=== PATIENT | male | born 1955 | race Caucasian/White ===

== ENCOUNTER 2021-12-24 12:26 | Inpatient (IN) | payer OTHER, MEDICARE ==
[~2021-12-24] VITALS: Ht 177.8 cm; Wt 91.3 kg
--- NOTE | 2021-12-24 13:00 | NUR ---
PT AMBULATED INTO MED/SURG, DIRECT ADMIT FROM DR. WONG'S OFFICE. ORDERS ENTERD BY COLOR MAKER DYER, CAMACHO. PT CHANGES INTO GOWN INDEPENDANTLY, STEADY ON FEET, NO ASSISTANCE NEEDED. IV STARTED TO LEFT FORARM PER PROTOCOL, BRISK BLOOD RETURN NOTED. LABS DRAWN WITH IV START AND SENT LAB. IV FLUIDS STARTED PER MD ORDER. PT REPORTS HE IS UNABLE TO VOID AT THIS TIME BECAUSE "I JUST WENT ON THE WAY IN." URINAL PROVIDED FOR WHEN NEEDED. VITAL SIGNS STABLE. PT REPORTS 2/10 PAIN "RIGHT BETWEEN THE RECTUM AND THE SCROTUM." PT DENIES NEED FOR PAIN MEDICATION AT THIS TIME. PT ALERT AND ORIENTD TO ALL. PT DENEIS NUBNESS OR TINGLING TO EXTREMITIES. CMS INTACT. HEART TONES REGULAR, LUNG SOUNDS CLEAR. BOWEL TONES ACTIVE. ABDOMEN SOFT AND NON TENDER. PT DENIES PAIN WITH URINATION. HARD REDDENED AREA NOTED BETWEEN RECTUM AND SCROTUM. PT DENEIS ANY SCROTAL SWELLING, REDNESS OR RASHES. BROWN ROUGH SPOTS NOTED OVER LEGS, ARMS AND ABDOMEN. PT REPORTS SPOTS ARE "FROM THE SUN." SMALL 3CM SOFT LUMP IN RIGHT UPPER LEG. PT REPORTS "ITS A FATTY LUMP FROM WHEN I WAS YOUNGER." PT UPDATED ON PLAN OF CARE AND OREINTED TO ROOM. PT DENIES ADDITIONAL NEEDS AT THIS TIME. CALL LIGHT WIHTIN REACH. BED RAILS UP.
--- NOTE | 2021-12-24 13:04 | NUR ---
RT COLLECTED RAPID COVID 19 SWAB WITH NO COMPLICATIONS AT THIS TIME.
[2021-12-24] MEDS ORDERED: TYLENOL325 MG PO (13:27)
--- NOTE | 2021-12-24 13:55 | NUR ---
HOURLY ROUNDING: PT RESTING IN BED ON BACK, REPORTS "LYING THIS WAY HELPS THE PAIN." PT REPORTS 2/10 PAIN AND CONTINUES TO DENY NEED FOR PAIN MEDICATION. PT UPDATED ON PLAN OF CARE. NO ADDITIONAL REQEUSTS OR COMPLAINTS. CALL LIGHT WIHTIN REACH. BED RAILS UP.
--- NOTE | 2021-12-24 14:48 | NUR ---
PT RESTING AWAKE IN BED. DENIES NEEDS AT THIS TIME. CALL LIGHT IN REACH.
--- NOTE | 2021-12-24 15:15 | NUR ---
HOURLY ROUNDING: THIS RN TO ROOM TO CHECK ON PT. PT RESTING ON LEFT SIDE, VISITING WITH . PT REPORTS 4/10 PAIN IN PERINEAL AREA. PT REQUESTS PAIN MEDICAITON, SEE MAR FOR MEDICATION GIVEN. PT DENIES ADDITIONAL REQUESTS OR COMPLAINTS. VERBALIZES UNDERSTANDING OF PLAN OF CARE. CALL LIGHT WITHIN REACH. BED RAILS UP. FAMILY AT BEDSIDE.
--- NOTE | 2021-12-24 16:29 | NUR ---
THIS RN TO ROOM TO CHECK ON PT. PT RESTING ON LEFT SIDE, REPORTS 2/10 PAIN IN PERINEAL AREA THAT IS TOLERABLE. PT DENIES NEED FOR ADDITIONAL PAIN MEDICATION. PRE PROCEEDURE CHECK LIST COMPLETED. OR PAPERWORK PRINTED. LR ON STRAIGHT TUBING HANGING AT BEDSIDE PER OR ORDERS. NO ADDITIONAL REQUESTS OR COMPLAINTS. CALL LIGHT WITHIN REACH. BED RAILS UP.
[2021-12-24] MEDS ORDERED: BACTRIM DS TAB1 EACH PO (16:36)
--- NOTE | 2021-12-24 17:05 | NUR ---
MED REC COMPLETE
--- NOTE | 2021-12-24 17:12 | NUR ---
PT ARRIVED THIS SHIFT FOR PERINEAL ABCESS. PT INDEPENDANT IN ROOM, STEADY ON FEET AND OREINTED TO SURROUNDINGS. PT NPO SO FAR THIS SHIFT, ANTICIPATING PROCEEDURE. PT ORIENTED TO ALL THROUGHOUT SHIFT. PT REPORTS 2-4/10 PAIN IN PERINEAL AREA THIS SHIFT, SEE MAR FOR MEDICAITON GIVEN. IV FLUIDS BOLUS GIVEN. MONITORING LABS. UA COMPLETE. PT VOIDING QUANTITY SUFFICENT. PT USES CALL LIGHT AND MAKES NEEDS KNOWN.
--- NOTE | 2021-12-24 17:22 | NUR ---
PAIN MEDICAITON DUE/GIVEN. PT REPORTS 3/10 PAIN IN LEFT ABDOMEN/FLANK. DINNER DELIVERED TO PT. PT REJECT DINNER. ENSURE OFFERED. PT AGREES TO TRY ENSURE. STRAWBERRY ENSURE MILKSHAKE PROVIDED. PT DENIES ADDITIONAL REQUESTS OR COMPLAINTS. CALL LIGHT WITHIN REACH. CHAIR ALARM ON.
--- NOTE | 2021-12-24 17:50 | NUR ---
DR. WONG CALLED AND UPDATED ON PT STATUS. PT UPDATED ON PLAN OF CARE. PT STATES PAIN IS "BETTER NOW." PT DENIES NEED FOR ADDITIONAL PAIN CONTROL INTERVENTIONS. CHG WIPE DOWN PER PRE-OP PROTOCOL PERFORMED. PTS AT BEDSIDE. PT AND STATE THEIR QUESTIONS HAVE BEEN ANSWERED. NO ADDITIONAL REQUESTS OR COMPLAINTS. CALL LIGHT WITHIN REACH. BED RAILS UP.
--- NOTE | 2021-12-24 18:41 | NUR ---
THIS RN TO ROOM TO CHECK ON PT. PT RESTING IN BED VISITING WITH HIS . PT REPORTS 2/10 "TOLERABLE" PAIN. PT DENIES ADDITIONAL REQUESTS OR COMPLAINTS AT THIS TIME. CALL KACI RENTERIA. BED RAILS UP.
--- NOTE | 2021-12-24 19:30 | NUR ---
IN TO GET VITALS, I&Os DONE
--- NOTE | 2021-12-24 19:35 | NUR ---
PT READY FOR SURGERY, DENIES C/O PAIN AT THIST GRIS. WAITING TO GO TO SURGERY. IVF INFUSING. IN ROOM
--- NOTE | 2021-12-24 20:25 | NUR ---
PT DOWN TO OR VIA STRETCHER ACOMPANIED BY OR STAFF AND ,
--- NOTE | 2021-12-24 21:08 | NUR ---
12/24/212107 Camryn Reyes 2103- PT ARRIVES TO PACU AWAKE AND TALKING. PT REPORTS NO PAIN OR NAUSEA. RESP EVEN AND UNLABORED. OXYGEN SAT MID TO HIGH 90'S ON RA. PT'S HEAD OF BED ELEVATED. PT TOLERATED WELL. 2106- DR. WONG AT THE BEDSIDE TO TALK WITH THE PT.
--- NOTE | 2021-12-24 21:25 | NUR ---
pt RETURNED FROM PACU, AWAKE AND RESTING IN BED. VSS, CPOX IN PLACE. RR EVEN AND UNLABORED, NO DISTRESS NOTED. pt REMAINS ON RA. BEDSIDE REPORT RECEIVVED FROM SURVEY AND MAPPING TECHNICIAN LISHA. pt REPORTS FEELING "HUNGRY", FRESH WATER AND JELLO PROVIDED. IV FLUIDS RESUMED PER MD ORDERS, IV SITE WNL AND FLUSHES EASILY. NO ADDITIONAL NEEDS, WILL CONTINUE TO MONITOR. CALL LIGHT IN REACHA DN ALSO REMAINS IN ROOM.
--- NOTE | 2021-12-24 21:25 | NUR ---
PT BACK FROM OR, ALERT AND ORIENTED, IVF INFUSING, CPOX AT BEDSIDE. NO C/O PAIN OR N/V, AT BEDSIDE
--- NOTE | 2021-12-24 21:55 | NUR ---
CALL RECEIVED FROM CLARI FROM LAB, GRAM STAIN POSITIVE FOR GRAM NEGATIVE DIPLOCOCCI-DR WONG MADE AWARE AT 2220. NO NEW ORDERS RECEIVED AT THIS TIME. PRIMARY RN ERNIE ALSO UPDATED.
--- NOTE | 2021-12-24 22:46 | NUR ---
awakes easily, on room air, cpox post op in place, clear lungs abd distended, soft, jian, ivf infusing lar. coop with asessment. c/o being hungry, train operations supervisor notified. irritable but redirectable .
--- NOTE | 2021-12-25 00:55 | NUR ---
resting, eyes closed, IVF infusing, dressing to buttocks area changed, packing in place, jer drain, abd removed and peripad applied. cooperative.
--- NOTE | 2021-12-25 01:38 | NUR ---
pt awake, c/o rectal/groin area pain, dressing in place rectal area. medicated with Toradol 30mg IV. IVF infusing w/o problems
--- NOTE | 2021-12-25 04:40 | NUR ---
Pt resting, turns self in bed, no further c/o pain. IVF infusing w/o problems. call light and fluids at hands rech, rooming in
--- NOTE | 2021-12-25 07:30 | NUR ---
REPORT RECEIVED FROM MARU KLEIN. PT RESTINGIN BED ON BACK. PT REPORTS 2/10 PAIN THAT IS WELL CONTROLLED AT THIS TIME. PT DENIES NEED FOR ADDITIONAL PAIN MEDICATION. DR. WONG TO BEDSIDE TO REVIEW PLAN OF CARE AND PLAN FOR DISCHRAGE WITH PT. PT VERBALIZES UNDERSTANDING AND STATES HIS QUESITONS HAVE BEEN ANSWERED. BREAKFAST ORDER PLACED. ORDERS GIVE TO SALINE LOCK IV AT THIS TIME. IV FLUSHED AND SALINE LOCKED, ALCOHOL CAP APPLIED. PT DENIES ADDITIONAL REQUESTS OR COMPLAINTS. CALL LIGHT WITHIN REACH. BED RAILS UP. PTS AT BEDSIDE.
[2021-12-25] MEDS ORDERED: OXYCODON-ACETA1 EAC2 PO (07:37)
[2021-12-25] MEDS ORDERED: METRONIDAZOLE250 MG PO (07:37)
[2021-12-25] MEDS ORDERED: CIPROFLOXACIN500 MG PO (07:37)
[2021-12-25] MEDS ORDERED: MOTRIN IB200 MG PO (07:38)
[2021-12-25] MEDS ORDERED: TYLENOL EXTRA500 MG PO (07:38)
--- NOTE | 2021-12-25 08:13 | NUR ---
ABX DUE. GIVEN ORDERED. PT CONTINUES RESTING IN BED, AWAITING BREAKFAST. PT UPDATED ON PLAN FOR DISCHARGE. NO ADDITONAL NEEDS CALL LIGHT WITHIN REACH. BED RAILS UP.
--- NOTE | 2021-12-25 09:02 | NUR ---
MORNING ASSESSMENT DUE. PT FINISHED WITH BREAKFAST. PT REPORTS 0/10 PAIN AT THIS TIME. PT DENIES NAUSEA. IV DC'D PER PROTOCOL. GAUZE AND COBAN APPLIED. PT DECLIENS A SHOWER AT THIS TIME. HEART TONES REGULAR, LUNG SOUNDS CLEAR. PT STEADY ON FEET WITH STAND BY ASSIST, PT INDEPENDNANT IN ROOM. PT UP TO RESTROOM. EDUCATION DONE REGARDING HOW TO USE A SITZ BATH. PT DEMONSTRATES UNDERSTANDING, FILLING AND OPERATING SITZ BATH. SITZ BATH PERFORMED WITH 2000ML WARM WATER. PT TOELARTES WELL. PT DENIES INCREASED PAIN WITH SITZ BATH. WOUND REMAINS WNL, PINROSE DRAIN IN PLACED WITH MINMAL RED DRAINAGE NOTED ON KAVEH PAD. NEW PAD PROVIDED. NEW MESH UNDERWARE PROVIDED, PT REQUESTS TO WEAR DEPENDS INSTEAD, PROVIDED. VITAL SIGNS STABLE. NO ADDITONAL NEEDS AT THIS TIME. CALL LIGHT WITHIN REACH. BED RAILS UP.
--- NOTE | 2021-12-25 09:41 | NUR ---
DR WONG CALLED TO CONFIRM DISCHAGE ABX ORDERS. DR. WONG STATES TO HAVE PT STOP TAKING BACTRUM AND CONTINUE CIPRO AND METRONIDAZOLE. PHARMCISTDAMIAN, CALLED AND STATES HE WILL EDIT DISCHAGE MEDICATION ORDERS.
--- NOTE | 2021-12-25 10:10 | NUR ---
PT READY FOR DISCHARGE. PHARMACIST TO BEDSIDE TO REVIEW MEDICATIONS WITH PT. PT VERBALIZES UNDERSTANDING OF MEDICATIONS AND STATES HIS QUESTIONS HAVE BEEN ANSWERED. DISCHARGE INSTRUCTIONS REVIEWED WITH PT AND PTS . PT AND VEBALIZE UNDERSTANDING OF INSTRUCTIONS, MEDICATIONS, FOLLOW UP, AND WOUND CARE AT HOME. PT AMBULATED FROM MED/SURG WITH ALL BELONGINGS. NO ADDITIONAL REQUESTS OR CONCENS.
--- NOTE | 2021-12-26 11:07 | HP ---
[facility] [address], [place] [address] Signed ADMISSION DATE: 12/24/2021 REASON FOR ADMISSION: Perineal abscess. HISTORY OF PRESENT ILLNESS: This 66-year-old white man lives in [place], [place]. He is a patient of Malu Gonzales as well as Dr. Mason Barrera. One week ago, he began having pain after fishing and in left anterior perineal area. He noted a "thumbnail" sized small mass. The following day, it increased in size and in pain. He had scheduled a visit in [place] for family practitioner there on Tuesday. The appointment was then changed to Tuesday. It was then changed to Tuesday as the provider was busy and then ultimately changed to see Malu Gonzales today on in [place]. Examination showed tenderness in the perineum in the anterior aspect of the midline and to the left and to the right. He has had no fever or chills and there has been no drainage there. He denies any prior history of perirectal abscess. 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 The patient has had hip replacement in 2016. He takes no medications on a routine basis. He does smoke cigars 1-2 times a day and drinks alcohol (beer). SOCIAL HISTORY: He lives in [place]. He is . His , Susi, is a nurse. 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 REVIEW OF SYSTEMS: He denies any shortness of breath or chest pain. He does have a fair amount of thirstiness. He has had a fair amount of water ingested on his way over from the [place] area for his visit in the office today. He denies any blood per rectum or hematemesis. He has no chest pain. The patient has been vaccinated for COVID and has not knowingly septic COVID disease. PHYSICAL EXAMINATION: GENERAL: Well-developed, well-nourished and well tanned white man who does not look toxic. Electronically Signed By: GONZÁLEZ WONG MD 12/26/21 1107 PATIENT NAME: MISHA HAYES HISTORY AND PHYSICAL DATE OF : 53 REPORT #: [id number] PHYSICIAN: GONZÁLEZ WONG MD PCP: MASON BARRERA MD REPORT IS CONFIDENTIAL AND NOT TO BE RELEASED WITHOUT AUTHORIZATION [facility] [address] [place], [place] [address] Signed VITAL SIGNS: His temperature is 97.3, pulse is 100, weight is 200 pounds. NECK: Shows no thyromegaly or cervical adenopathy. CHEST: Clear. HEART: Regular. His position of comfort is supine with legs flexed. Examination on the table shows tenderness and firmness in the region of the perianal area anteriorly and dominantly to the left foot to small extent to the right (he has noted no urinary frequency or fecal tenesmus and urinary flow was good). EXTREMITIES: Show a 5 cm lipoma of the right anterior thigh. He has no peripheral edema. No petechiae. ASSESSMENT: He may well have a perirectal abscess manifesting dominantly to the left side with extension to the right side at this point. If the anterior position gave some suggestion of possible prostatic involvement or possibility, however, he has no urinary symptoms whatsoever. Most likely this represents a perirectal abscess with development of extension to the contralateral side suggestive of horseshoe abscess. The patient has had a fair amount of liquids despite him being clinically dehydrated. I have recommended he be admitted directly to the hospital with initiation of IV fluids, assessment of COVID status, lab studies, IV antibiotics, and parenteral pain medication anticipating incision and drainage this evening. The risk of bleeding, infection, failure to cure the problem, the need for other indicated procedures was reviewed with him in detail. He understands and we will proceed as we have described. MD NISSA Limon/SKIP /[id number] cc: VIVEK Jones MD Electronically Signed By: GONZÁLEZ WONG MD 12/26/21 1107 PATIENT NAME: MISHA HAYES HISTORY AND PHYSICAL DATE OF : 53 REPORT #: [id number] PHYSICIAN: GONZÁLEZ WONG MD PCP: MASON BARRERA MD REPORT IS CONFIDENTIAL AND NOT TO BE RELEASED WITHOUT AUTHORIZATION [address] [address] Signed Copies: MASON BARRERA MD ~ Electronically Signed By: GONZÁLEZ WONG MD 12/26/21 1107 PATIENT NAME: MISHA HAYES JOS HISTORY AND PHYSICAL DATE OF : 53 REPORT #: [id number] PHYSICIAN: GONZÁLEZ WONG MD PCP: MASON BARRERA MD REPORT IS CONFIDENTIAL AND NOT TO BE RELEASED WITHOUT AUTHORIZATION
--- NOTE | 2021-12-26 11:07 | OR ---
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 PROCEDURES: 1. Exam under anesthesia. 2. Drainage of complex perirectal horseshoe abscess. 3. Placement of yellow vessel loop seton drain. ANESTHESIA: Saddle block, Everardo Rebolledo, MUSIC LEADER and IV sedation with local 10 mL of 0.25% Marcaine with epinephrine. INDICATION: This 66-year-old white man has had nearly a week of increasing perianal pain anteriorly located. He was seen by David Elmore confirming high probability of perirectal abscess. I saw him today on a walk-in basis in the office where he was noted to have induration and tenderness in the right anterior aspect as well as the left side. He was admitted, given fluid resuscitation, IV antibiotic cefoxitin and now to undergo exam under anesthesia with incision and drainage of probable horseshoe abscess. The risks of bleeding, infection, recurrence, need for other indicated procedures and of course, fistula formation (10% risk) were reviewed in detail. He understands and wished to proceed. FINDINGS: A radial incision in the anterior aspect on the right side allowed for entry to a perirectal abscess that extended on the perianal and perirectal spaces and anteriorly toward the base of the hemiscrotum. Thick purulent material was noted. Gram stain and cultures were obtained. Additionally, a counter incision was made to the left of the midline anteriorly, which also had purulent material in connection between the two sites as well established. Complete relief of the abscess cavity was undertaken. A yellow vessel loop was passed between the two incision sites and secured and copious irrigation of both sites undertaken allowing for clearance of the abscess cavity. Electronically Signed By: GONZÁLEZ WONG MD 12/26/21 1107 PATIENT NAME: MISHA HAYES OPERATIVE REPORT DATE OF : 53 REPORT #: [id number] PHYSICIAN: GONZÁLEZ WONG MD PCP: MASON REYNOSO MD REPORT IS CONFIDENTIAL AND NOT TO BE RELEASED WITHOUT AUTHORIZATION [facility] [address] [place], [place] [address] Signed DESCRIPTION OF PROCEDURE: The patient was brought to the operating room, given intravenous sedation. He had undergone a saddle block anesthetic prior to entry to the operating room. He is placed in a prone alejandra-knife position and the perineum prepared with a Betadine based solution and draped sterilely. Palpation showed induration to the right and left side anteriorly. A rectal retractor was placed in the anal canal, but stool precluded much useful examination there. A radial incision was made with a 15 blade in the anterolateral aspect on the right. Entry to the space of a hemostat delivered copious amounts of thick purulent material. This extended to the right perirectal space and anteriorly to the right base of the scrotum. The area was milked of copious amounts of purulent material. Gram stain and cultures were obtained. A counter incision was made to the left of the median raphae in the mirror image and probed with a hemostat also delivering purulent material. The two cavities were connected across the midline and a yellow vessel loop seton was placed. Irrigation was undertaken in both areas until the spaces were completely clear. A 10 mL of 0.25% Marcaine with epinephrine was injected locally. A peripad was applied. He was returned to supine position and taken to the recovery room in good condition. Blood loss was less than 10 mL. Sponge, needle, and instrument counts were reported as correct x3. MD NISSA Limon/MODL /[id number] cc: VIVEK Rosario MD Copies: DAVID ELMORE RUSSEL J MD ~ Electronically Signed By: GONZÁLEZ WONG MD 12/26/21 1107 PATIENT NAME: MISHA HAYES OPERATIVE REPORT DATE OF : 53 REPORT #: [id number] PHYSICIAN: GONZÁLEZ WONG MD PCP: MASON REYNOSO MD REPORT IS CONFIDENTIAL AND NOT TO BE RELEASED WITHOUT AUTHORIZATION
== END 2021-12-25 10:14 | disposition home or self-care (01) | DRG 331 ==
LOC: MS 12:26
PROVIDERS: ADMIT Surgery; ATTEND Surgery
PROC: 0D9P00Z Drainage of Rectum with Drainage Device, Open Approach (ICD-10-PCS; principal; 2021-12-24 08:30)
DX: K61.1 Rectal abscess (principal); F17.210 Nicotine dependence, cigarettes, uncomplicated; F10.10 Alcohol abuse, uncomplicated; E86.0 Dehydration; Z20.822 Contact with and (suspected) exposure to COVID-19; Z96.649 Presence of unspecified artificial hip joint
CPT/HCPCS: 36415; 80053; 81001; 85025; 94762; C9803; J0694; J1885; J2001; J2250; J2405; J2704; J3010; J7121; U0003